=== PATIENT | male | born 1975 | race Hispanic/Latino ===

== ENCOUNTER 2023-12-04 16:42 | Emergency (ER) | payer OTHER ==
[2023-12-04] MEDS ORDERED: HYDROcodone/Acetaminophen 5/325 mg Tablet ONE (17:44)
[2023-12-04] MEDS ORDERED: Ibuprofen 200 MG TAB ONE (17:45)
== END 2023-12-04 18:46 | disposition home or self-care (01) ==
LOC: CSHERS 16:42
DX: S52.502A Unspecified fracture of the lower end of left radius, initial encounter for closed fracture (principal); F17.210 Nicotine dependence, cigarettes, uncomplicated; W11.XXXA Fall on and from ladder, initial encounter
CPT/HCPCS: 25565